=== PATIENT | male | born 1965 | race Caucasian/White ===

== ENCOUNTER 2017-11-22 14:19 | Emergency (ER) | payer OTHER ==
[~2017-11-22] VITALS: Ht 177.8 cm; Wt 79.4 kg
[2017-11-22 15:22] LABS: ABSOLUTE BASOPHIL COUNT 0 /CUMM (0.0-0.2); ABSOLUTE EOSINOPHIL COUNT 0.2 /CUMM (0.0-0.7); ABSOLUTE GRANULOCYTE CT 4.3 /CUMM (1.4-6.5); ABSOLUTE LYMPH COUNT 0.8 /CUMM (1.2-3.4); ABSOLUTE MONOCYTE COUNT 0.5 /CUMM (0.10-0.60); BASOPHIL % 0.4 % (0.0-2.0); EOSINOPHIL % 2.7 % (0-5); GRANULOCYTE % 74.8 % (42.2-75.2); HEMATOCRIT 45.2 % (42-52); MEAN CORPUSCULAR HGB 30.6 PG (27.0-31.0); MEAN CORPUSCULAR HGB CONC 34.8 G/DL (33.0-37.0); MEAN CORPUSCULAR VOLUME 88.1 FL (80.0-94.0); MEAN PLATELET VOLUME 11.2 FL (7.4-10.4); PLATELET COUNT 131 /CUMM (130-400); RED BLOOD CELL CT 5.13 /CUMM (4.70-6.10); WHITE BLOOD CELL COUNT 5.7 /CUMM (4.8-10.8)
--- NOTE | 2017-11-22 18:05 | ED CARDIAC/CP/PALPITATIONS ---
History of Present Illness General Chief Complaint: General Adult Stated Complaint: "FEELS LIKE MY HEART IS SKIPPING A BEAT" Source: patient Exam Limitations: no limitations Vital Signs & Intake/Output Vital Signs & Intake/Output ED Intake and Output 11/23 0000 11/22 1200 Intake Total Output Total Balance Patient 175 lb Weight Allergies Coded Allergies: No Known Allergies (11/22/17) Triage Note: PT STATES THAT WHILE AT WORK HE STARTED TO FEEL A FLUTTER EVERYONCE IN AWHILE IN HIS CHEST, STATES THAT IS DIDN'T LAST LONG BUT HAS BEEN COMING AND GOING SINCE. DENIES CP/SOB/ Triage Nurses Notes Reviewed? yes Onset: Afternoon Duration: minute(s): Timing: multiple episodes today Activities at Onset: rest Prior Chest Pain/Card Workup: no prior chest pain, no prior cardiac workup HPI: PATIENT IS A 52 Y/O MALE, NO PMH, PRESENTING WITH 5 HOURS OF FEELING SKIPPED HEART BEATS. PATIENT STATES THAT THIS BEGAN AFTER LUNCH TODAY. THE SENSATION FEEL LIKE A "HICCUP" AND IS ASSOCIATED WITH A "HEADRUSH". SYMPTOMS LAST FOR 1-2 SECONDS AND COME EVERY 5-10 MINUTES. PATIENT DENIES ANY INCREASED STRESS OR ALTERATIONS IN HIS DIET OR DAILY ACTIVITIES. THERE IS NO ASSOCIATED CHEST PAIN, SOB, FEVER CHILLS, HEADACHE, DIZZINESS, ABDOMINAL PAIN, SLEEP DISTURBANCES, OR HOT/COLD INTOLERANCE. (Timi Jo) Reconcile Medications Lisinopril (Zestril) 10 MG TABLET 1 TAB PO DAILY HTN (Henri Gates DO) Past History Travel History Traveled to [place] past 21 day No Medical History Any Pertinent Medical History? none Neurological: NONE EENT: NONE Cardiovascular: NONE Respiratory: NONE Gastrointestinal: NONE Hepatic: NONE Renal: NONE Musculoskeletal: NONE Psychiatric: NONE Endocrine: NONE Blood Disorders: NONE Cancer(s): NONE TRANSPORTATION SUPERINTENDENT/Reproductive: NONE Surgical History Surgical History: none Psychosocial History What is your primary language Haitian Tobacco Use: Never used ETOH Use: denies use Illicit Drug Use: denies illicit drug use Family History Comment: FATHER- AAA (68 Y/O) Hx Contributory? No (Timi Jo) Review of Systems Review of Systems Constitutional: Reports: no symptoms. EENTM: Reports: no symptoms. Respiratory: Reports: no symptoms. Cardiovascular: Reports: palpitations. GI: Reports: no symptoms. Genitourinary: Reports: no symptoms. Musculoskeletal: Reports: no symptoms. Skin: Reports: no symptoms. Neurological/Psychological: Reports: no symptoms. Hematologic/Endocrine: Reports: no symptoms. Immunologic/Allergic: Reports: no symptoms. All Other Systems: Reviewed and Negative (Timi Jo) Physical Exam Physical Exam General Appearance: well developed/nourished, no apparent distress, alert, awake , comfortable Head: atraumatic, normal appearance Eyes: Bilateral: normal appearance, PERRL, EOMI. Ears, Nose, Throat: normal ENT inspection Neck: normal inspection, full range of motion Respiratory: normal breath sounds, chest non-tender, no respiratory distress, lungs clear Cardiovascular: regular rate/rhythm Peripheral Pulses: 2+ radial (R), 2+ radial (L) Gastrointestinal: normal bowel sounds, soft, non-tender, no organomegaly Extremities: normal inspection, normal capillary refill, normal range of motion, no edema Skin: intact, normal color, warm/dry Core Measures ACS in differential dx? Yes CVA/TIA Diagnosis No Sepsis Present: No Sepsis Focused Exam Completed? No (Timi Jo) Progress Differential Diagnosis: AMI, atrial fibrillation, CHF/pulm edema, hyperthyroid, pericarditis, pulmonary embolism, PVCs/PACs, V-fib/V-Tach, WPW syndrome Diagnostic Imaging: Viewed by Me: Radiology Read. Discussed w/RAD: Radiology Read. Initial ED EKG: normal sinus rhythm, rate (83) (Timi Jo) Plan of Care: Orders Procedure Date/time Status Add-on Test (ER Only) 11/22 1812 Active THYROID STIMULATING HORMONE 11/22 1507 Complete TROPONIN LEVEL 11/22 1445 Complete MAGNESIUM 11/22 1445 Complete COMPREHENSIVE METABOLIC PANEL 11/22 1445 Complete CBC WITHOUT DIFFERENTIAL 11/22 1445 Complete EKG 11/22 1445 Active Laboratory Tests 11/22/17 1507: Anion Gap 11, Estimated GFR > 60, BUN/Creatinine Ratio 14.4, Glucose 127 H, Calcium 9.2, Magnesium 1.9, Total Bilirubin 0.9, AST 51, ALT 78 H, Alkaline Phosphatase 137 H, Troponin I < 0.01, Total Protein 7.7, Albumin 4.4, Globulin 3.3, Albumin/Globulin Ratio 1.3, TSH 5.110 H, Free T3 3.7, CBC w Diff NO MAN DIFF REQ, RBC 5.13, MCV 88.1, MCH 30.6, MCHC 34.8, RDW 13.0, MPV 11.2 H, Gran % 74.8, Lymphocytes % 14.2 L, Monocytes % 7.9, Eosinophils % 2.7, Basophils % 0.4 , Absolute Granulocytes 4.3, Absolute Lymphocytes 0.8 L, Absolute Monocytes 0.5 , Absolute Eosinophils 0.2, Absolute Basophils 0 11/22/17 1451: TSH Cancelled (Henri Gates DO) Departure Departure Disposition: HOME OR SELF CARE Condition: Stable Clinical Impression Primary Impression: Heart palpitations Referrals: Patient Has No Primary Care Dr (PCP/Family) Additional Instructions: Follow-up with construction skills teacher provided for outpatient workup with Holter monitor. Return if any other concerns worsening symptoms. Please go over all results of today's visit with your primary care doctor. Contact your primary care doctor to let them know you were here in the emergency room. There may be nonspecific findings which may not be related to your visit today here in the emergency room but may require further evaluation and chronic monitoring by your primary care doctor. If you had a laceration today the chance of foreign body always remains. You should follow-up with your primary care doctor for recheck in 3-5 days for a wound check. If you had an x-ray done there is a chance that a fracture could have been missed on initial read and you should follow-up with your primary care doctor for repeat x-rays if symptoms persist. If your blood pressure was elevated here in the emergency room please have rechecked by [facility] primary care doctor within the next 48. If you were prescribed a narcotic here in the emergency room or any type of controlled substances you're not allowed to drive while taking this medication or operate any type of heavy machinery. Narcotics can make you feel lightheaded dizziness nausea and can cause constipation. You may need to pharmacy picking technician a stool softener. Thank you for choosing [facility] emergency room. Please return to the emergency room immediately if you have any other concerns worsening of symptoms. Departure Forms: Customer Survey General Discharge Information Comments 11/22/2017 8:26:34 PM Patient clinically looks well. Patient is in no apparent distress. Patient is nontoxic-appearing. Resting comfortably in room. Follow-up with cardiology as outpatient. Patient was seen by Dr. Gates. (Timi Jo) Departure Prescriptions: Current Visit Scripts Lisinopril (Zestril) 1 TAB PO DAILY #20 TAB PA/GROUP EXERCISE INSTRUCTOR Co-Sign Statement Statement: ED Attending supervision documentation- [X] I saw and evaluated the patient. I have also reviewed all the pertinent lab results and diagnostic results. I agree with the findings and the plan of care as documented in the PA's/GROUP EXERCISE INSTRUCTOR's documentation. [] I have reviewed the ED Record and agree with the PA's/GROUP EXERCISE INSTRUCTOR's documentation. [] Additions or exceptions (if any) to the PAs/GROUP EXERCISE INSTRUCTOR's note and plan are summarized below: [] I have seen and personally examined the patient and I agree with the PAs evaluation. He is a 52-year-old man who presented to the emergency department with occasional palpitations. He has no chest pain. He has no shortness of breath. He denies any past medical history or other complaints. He does say that that his blood pressure is elevated. He says he typically runs 145/90. He says he does not see a physician regularly. EKG reveals sinus rhythm. Rhythm strip shows occasional PACs. Troponin was nondetectable; again he has no chest pain. BP was moderately elevated, he started on lisinopril and will follow-up with cardiology this week. He also had an elevated TSH and a T4 was ordered. (Kody NI,Henri Angel) Critical Care Note Critical Care Note Critical Care Time: non-applicable (Timi Jo)
[2017-11-22] MEDS ORDERED: ZESTRIL10 M1 PO (19:00)
[2017-11-22 19:34] VITALS: BP 148/96
== END 2017-11-22 19:35 ==
LOC: ERH 14:19
PROVIDERS: Physician Assistant Medical
DX: R00.2 Palpitations (principal)
CPT/HCPCS: 84481; 93005; 93010